=== PATIENT | male | born 1970 | race Caucasian/White ===

== ENCOUNTER 2019-12-31 08:04 | Emergency (ER) | payer OTHER, SELFPAY ==
--- NOTE | ~2019-12-31 | XR_ITS ---
EXAMINATION: XR finger 2nd RT min 2V DATE: 12/31/2019 08:32 INDICATION: Smashing injury to the right second digit TECHNIQUE: Dorsal palmar, lateral and 2 oblique views of the right second digit were obtained COMPARISON: None FINDINGS: Alignment is normal. No fracture. 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 Soft tissue swelling and likely laceration along the radial aspect o f the distal second digit. Bandaging material around the digit. No radiopaque foreign bodies. IMPRESSION: 1. No acute osseous abnormality. Reviewed, dictated and finalized at location A.
[2019-12-31 08:14] VITALS: BP 168/122; PULSE 73; RESP 16; TEMP 36.6; O2SAT 100
[2019-12-31] MEDS: TETANUS/DIPHTHERIA TOXOIDS ADSORB 0.5 ML VIAL (*BKC) IM (08:38)
--- NOTE | 2019-12-31 08:43 | ED.SKABFB ---
HPI - Skin/Abscess/Foreign Bdy General Chief complaint: Skin/Abscess/Foreign Body Stated complaint: Cut to right index finger Time Seen by Provider: 12/31/19 08:34 Source: patient and RN notes reviewed Mode of arrival: ambulatory Limitations: no limitations History of Present Illness HPI narrative: Patient presents today complaining of an injury to his right second finger. He struck the finger with a sledgehammer at work approximately 1 hour prior to arrival. Currently rates his pain 5/10. Denies numbness or tingling. Not up-to-date on his tetanus vaccine. complaint: laceration Related Data Allergies Allergy/AdvReac Type Severity Reaction Status Date / Time No Known Allergies Allergy Verified 12/31/19 08:25 Review of Systems Review of Systems: Narrative: CONSTITUTIONAL: Denies body aches, fever, chills, or sweats. EYES: Denies visual changes, redness, or discharge. ENT: Denies rhinorrhea, congestion, sore throat, or otalgia. CARDIOVASCULAR: Denies chest pain, palpitations, or edema. RESPIRATORY: Denies cough or dyspnea. GASTROINTESTINAL: Denies abdominal pain, nausea, vomiting, or diarrhea. GENITOURINARY: Denies dysuria or hematuria. SKIN: Denies rash, itching. +Laceration right second finger MUSCULOSKELETAL: Denies back pain, joint pain, or myalgia. NEUROLOGIC: Denies headache, numbness, tingling, or weakness. PSYCH: Denies depression or anxiety. PMFSH Comments At time of signature, I have reviewed and agree with nursing past medical, surgical, social and family history unless otherwise noted. Please see nursing chart for further information. There is no relevant family history pertinent to the presenting complaint Exam Narrative: Exam Narrative: GENERAL: Well-appearing, well-nourished, and in no acute distress. HEAD: Normocephalic, atraumatic. EYES: EOMI. No redness or drainage. Conjunctivae normal. ENT: Mucous membranes pink and moist. NECK: Normal AROM. CHEST: No respiratory distress. EXTREMITIES: Right 2nd finger: 6cm full thickness irregular laceration with moderate swelling Of the finger with mild ecchymosis. The laceration begins on the dorsum of the finger and extends almost circumferentially with approx 1cm of skin that is still intact. Distal sensation intact. Capillary refill normal. Range of motion is slightly limited due to swelling and pain, but he does have strong range of motion against resistance. SKIN: Warm, dry, no rash. Capillary refill normal. Normal skin turgor. NEURO: No focal deficits. Alert and oriented x3. Gait steady. PSYCH: Normal affect. No signs of depression or anxiety. Course Vital Signs Vital signs: Vital Signs Temperature 98 F 12/31/19 08:14 Pulse Rate 73 12/31/19 08:14 Respiratory Rate 16 12/31/19 08:14 Blood Pressure 168/122 H 12/31/19 08:14 Pulse Oximetry 100 12/31/19 08:14 Temperature 98 F 12/31/19 08:14 Pulse Rate 73 12/31/19 08:14 Respiratory Rate 16 12/31/19 08:14 Blood Pressure 170/103 H 12/31/19 09:35 Pulse Oximetry 100 12/31/19 08:14 Reviewed. Pt has been instructed to follow up with his PCP regarding his elevated blood pressure today. Procedures Laceration Laceration 1: Date: 12/31/19 Time: 09:25 Site: hand (Second finger) Side (If applicable): right Size (cm): 6 Description: irregular Depth: simple, single layer Local Anesthetic: lidocaine 1% Pre-repair: irrigated extensively ====== Skin Level ====== Skin layer closed with: nylon Size (cm): 5-0 Number of sutures: 11 Technique: simple, interrupted ====== Subcutaneous Layer ====== ====== Muscle Layer ====== ====== Tendon Layer ====== Dressing: Wound dressed and splint applied by tech. MDM - Skin/Abscess/Foreign Bdy Differential Diagnosis Differential diagnosis: Likely other (Laceration, open fracture, finger fracture, skin avulsion, contusion)
[2019-12-31 09:35] VITALS: BP 170/103
== END 2019-12-31 09:43 | disposition home or self-care (01) ==
PROVIDERS: Emergency Provider Nurse Practitioner
DX: S61.210A Laceration without foreign body of right index finger without damage to nail, initial encounter (principal); W22.8XXA Striking against or struck by other objects, initial encounter; Z23 Encounter for immunization
CPT/HCPCS: 12002; 73140; 90471; 90714; 99213; G0463